=== PATIENT | female | born 1975 | race Caucasian/White ===

== ENCOUNTER → 2017-05-08 | Outpatient (CLI) | payer OTHER | LOC: M.ULTRA 15:00 | DX: N63.10 Unspecified lump in the right breast, unspecified quadrant (principal) ==

== ENCOUNTER → 2019-08-20 | Outpatient (CLI) | payer OTHER | LOC: M.RAD 14:54 | PROVIDERS: ATTEND Family Medicine | DX: Z12.31 Encounter for screening mammogram for malignant neoplasm of breast (principal) ==

== ENCOUNTER 2020-04-20 19:24 | Emergency (ER) | payer OTHER ==
[~2020-04-20] VITALS: Ht 157.5 cm; Wt 111.1 kg
[2020-04-20] MEDS ORDERED: SYNTHROID75 MCG PO (19:35)
[2020-04-20] MEDS ORDERED: MEDROLDOSEPACK PO (20:44)
[2020-04-20] MEDS ORDERED: APAP W/CODEINE1 TA2 PO (20:44)
[2020-04-20] MEDS ORDERED: FLEXERIL PO (20:44)
[2020-04-20 21:15] VITALS: BP 151/75
== END 2020-04-20 21:15 | disposition home or self-care (01) ==
LOC: M.ERS 19:24
DX: S16.1XXA Strain of muscle, fascia and tendon at neck level, initial encounter (principal); M54.9 Dorsalgia, unspecified; E03.9 Hypothyroidism, unspecified; Z79.899 Other long term (current) drug therapy; V89.2XXA Person injured in unspecified motor-vehicle accident, traffic, initial encounter; Y93.I9 Activity, other involving external motion; Y92.488 Other paved roadways as the place of occurrence of the external cause; Y99.8 Other external cause status

== ENCOUNTER → 2021-04-30 | Outpatient (CLI) | payer OTHER ==
[~2021-04-30] MED LIST: APAP W/CODEINE1 TA2 PO; FLEXERIL PO; MEDROLDOSEPACK PO; SYNTHROID75 MCG PO
== END ==
LOC: M.RAD 08:08
PROVIDERS: ATTEND Family Medicine
DX: Z12.31 Encounter for screening mammogram for malignant neoplasm of breast (principal)